=== PATIENT | female | born 1950 | race Caucasian/White ===

== ENCOUNTER 2021-10-14 08:00 | Outpatient (CLI) | payer MEDICARE ==
[2021-10-14 19:45] LABS: BASOPHILS # (AUTO) 0.1 10^3/uL (0.0-0.1); BASOPHILS % (AUTO) 0.6 %; EOSINOPHILS # (AUTO) 0.3 10^3/uL (0.0-0.7); EOSINOPHILS % (AUTO) 3.2 %; HCT - HEMATOCRIT 43.3 % (37.0-47.0); HGB - HEMOGLOBIN 14.1 g/dL (12.0-16.0); LYMPHOCYTES # (AUTO) 2.2 10^3/uL (1.5-3.5); LYMPHOCYTES % (AUTO) 25.6 %; MEAN CORPUSCULAR HGB CONC 32.6 g/dL (32.0-36.0); MEAN CORPUSCULAR VOLUME 95.2 fL (81.0-99.0); MEAN PLATELET VOLUME 9.9 fL (7.9-10.8); MONOCYTES # (AUTO) 0.9 10^3/uL (0.0-1.0); MONOCYTES % (AUTO) 10.5 %; NEUTROPHILS % (AUTO) 59.2 %; PLT - PLATELET COUNT 301 10^3/uL (130-450); RED BLOOD COUNT 4.55 10^6/uL (4.20-5.40); RED CELL DISTRIBUTION WIDTH 14.6 % (12.0-15.0); WHITE BLOOD COUNT 8.4 x10^3/uL (4.8-10.8)
[2021-10-17 16:11] LABS: VARICELLA ZOSTER VIRUS IGM 0.15
== END 2021-10-14 23:59 | disposition home or self-care (01) ==
LOC: LAB.S 08:00
PROVIDERS: ATTEND Registered Nurse
DX: B02.9 Zoster without complications (principal)
CPT/HCPCS: 36415; 85025; 86787

== ENCOUNTER 2022-05-31 23:43 | Outpatient (CLI) | payer MEDICARE | END 2022-05-31 23:44 | disposition critical access hospital (66) | LOC: EMS 23:43 | DX: R06.02 Shortness of breath (principal) | CPT/HCPCS: A0425; A0427 ==

== ENCOUNTER 2022-06-01 00:03 | Emergency (ER) | payer MEDICARE ==
--- NOTE | 2022-06-01 00:08 | ED Physician Documentation ---
PD HPI DYSPNEA - Stated complaint Stated Complaint: SEVERE RESP DISTRESS - History obtained from History obtained from: Patient (minimal contribution from patient , cannot answer most of my questions due to severe respiratory distress), EMS - History of Present Illness Timing - onset: How many weeks ago (1) Timing - details: Gradual onset Improved by: Other (no ameliorating factors) - Additional information Additional information: BIBA for dyspnea, very limited HPI due to severe respiratory distress. EMS says she was able to answer some questions for them with one-word answers but on arrival she can answer almost none of my questions due to severe respiratory distress. EMS says patient indicated to them that she has had approximately 1 week of difficulty breathing, was recently diagnosed with "walking pneumonia". EMS administered duoneb and 125 solumedrol IV without improvement. They say that patient indicated to them that she had already used albuterol at home, but I cannot confirm this with patient. She is able to tell me she does not use oxygen at home, but cannot tell me if she has COPD, emphysema, CHF history. EMS reports pulse ox on room air on their arrival was mid-80s, improved to lower 90s after albuterol, solumedrol, and 100%NRB although her dyspnea has worsened en route Review of Systems Unable to obtain: Other (minimal ROS due to severe respitory distress, requires intuabtion shortly after ED arrival) Cardiac: denies: Chest pain / pressure (when asked if she is having chest pain she shakes her head no) Respiratory: reports: Dyspnea PD PAST MEDICAL HISTORY - Past Medical History Other Past Medical History: unknown - Allergies Allergies/Adverse Reactions: Allergies Allergy/AdvReac Type Severity Reaction Status Date / Time codeine Allergy Anaphylaxis Verified 06/01/22 00:15 morphine Allergy Anaphylaxis Verified 06/01/22 00:15 - Living Situation Living Situation: reports: Unknown PD ED PE NORMAL - Vitals Vital signs reviewed: Yes - General General: Well developed/nourished - Neck Neck: No JVD - Abdomen Abdomen: Soft, Non tender - Derm Derm: Normal color, Other (diaphoretic) - Extremities Extremities: Other (1+ BLE pitting MINH ) PD ED PE EXPANDED - General General: In distress (severe respiratory distress) - Cardiac Cardiac: Tachy - Respiratory Respiratory: Labored, Accessory mm use, Wheezing (inspiratory and expiratory wheezing all lung patel, diminished breath sounds bilaterally ) Results - Vitals Vitals: Vital Signs - 24 hr 06/01/22 06/01/22 06/01/22 00:15 00:21 00:25 Temperature 37.2 C Heart Rate 139 H 139 H 143 H Respiratory 31 H 34 H 30 H Rate Blood Pressure 168/98 H 190/112 H 155/90 H O2 Saturation 91 L 85 L 97 06/01/22 06/01/22 06/01/22 00:30 00:34 00:45 Temperature Heart Rate 141 H 155 H 156 H Respiratory 25 H 25 H Rate Blood Pressure 155/90 H 139/92 H O2 Saturation 98 98 06/01/22 06/01/22 06/01/22 01:05 01:17 01:31 Temperature 38.6 C H 38.5 C H Heart Rate 155 H 127 H 123 H Respiratory 21 21 20 Rate Blood Pressure 97/73 119/76 130/74 O2 Saturation 95 95 99 06/01/22 06/01/22 06/01/22 01:53 02:01 02:19 Temperature 37.2 C Heart Rate 114 H 110 H 109 H Respiratory 21 21 20 Rate Blood Pressure 114/72 117/78 87/66 L O2 Saturation 97 97 91 L 06/01/22 06/01/22 06/01/22 02:24 02:30 02:51 Temperature Heart Rate 108 H 105 H 103 H Respiratory 20 20 Rate Blood Pressure 96/70 101/75 101/81 H O2 Saturation 93 97 06/01/22 06/01/22 06/01/22 03:00 03:10 03:30 Temperature 37.1 C Heart Rate 97 94 86 Respiratory 20 21 Rate Blood Pressure 96/70 95/65 O2 Saturation 96 99 06/01/22 06/01/22 06/01/22 04:00 04:30 04:32 Temperature 37 C 36.8 C Heart Rate 83 77 Respiratory 21 21 Rate Blood Pressure 95/65 75/52 L 81/63 L O2 Saturation 99 100 06/01/22 06/01/22 06/01/22 04:47 05:00 05:30 Temperature Heart Rate 76 76 72 Respiratory 21 21 21 Rate Blood Pressure 89/66 L 89/66 L 92/64 O2 Saturation 100 100 99 06/01/22 06/01/22 06/01/22 05:48 05:50 06:00 Temperature 36.7 C Heart Rate 72 69 70 Respiratory 21 21 Rate Blood Pressure 85/64 L 92/68 O2 Saturation 100 100 06/01/22 06/01/22 06/01/22 06:30 07:00 07:09 Temperature Heart Rate 70 70 69 Respiratory 21 21 Rate Blood Pressure 101/75 102/72 O2 Saturation 100 97 06/01/22 06/01/22 06/01/22 07:43 08:07 09:22 Temperature Heart Rate 68 68 66 Respiratory 20 24 20 Rate Blood Pressure 93/69 98/68 93/67 O2 Saturation 95 96 93 06/01/22 06/01/22 06/01/22 10:13 10:22 10:52 Temperature Heart Rate 64 64 69 Respiratory 26 H 12 Rate Blood Pressure 96/68 106/77 O2 Saturation 93 93 06/01/22 11:10 Temperature Heart Rate 69 Respiratory 16 Rate Blood Pressure 106/71 O2 Saturation 93 Oxygen O2 Source Mechanical ventilator - EKG (time done) #1 Rate: Tachy (139) Rhythm: Sinus tachycardia, Wide complex tachycardia [place]: LAD Intervals: LBBB Compare to prior EKG: Old EKG unavailable #2 Rate: Rate (enter#) (68) Rhythm: NSR [place]: LAD Intervals: Normal MT QRS: Normal Ischemia: Normal ST segments, Other (flat T wave V4-V6, I, (inverted) aVL) Compare to prior EKG: Old EKG unavailable - Labs Labs: Laboratory Tests 06/01/22 06/01/22 06/01/22 00:10 00:10 00:10 WBC 21.6 H RBC 4.83 Hgb 14.8 Hct 45.5 MCV 94.2 MCH 30.6 MCHC 32.5 RDW 12.4 Plt Count 443 MPV 9.9 Neut # (Auto) Not Reportable Lymph # (Auto) Not Reportable [place] # (Auto) Not Reportable Eos # (Auto) Not Reportable Baso # (Auto) Not Reportable Absolute Nucleated RBC Not Reportable Total Counted 100 Band Neuts % (Manual) 0 Abnorm Lymph % (Manual) 0 Nucleated RBC % Not Reportable Neutrophils # (Manual) 13.2 H Lymphocytes # (Manual) 5.4 H Monocytes # (Manual) 1.7 H Eosinophils # (Manual) 1.1 H Basophils # (Manual) 0.2 H Differential Comment MANUAL DIFFERENTIAL WBC Morphology NORMAL APPEARANCE Platelet Estimate NORMAL (130-450,000) Platelet Morphology NORMAL APPEARANCE RBC Morph Micro Appear NORMAL APPEARANCE INR (Fingerstick) Bld Gas Analysis Time Sample Site ABG pH ABG pCO2 ABG pO2 ABG HCO3 ABG Total CO2 ABG O2 Saturation ABG Base Excess [place] Test Respiration Rate O2 Delivery Device Vent Mode FiO2 Tidal Volume PEEP Sodium 134 L Potassium 3.7 Chloride 95 L Carbon Dioxide 23 Anion Gap 16.0 H BUN 20 Creatinine 1.0 Estimated GFR (MDRD) 54 L Glucose 439 H Lactic Acid Calcium 9.7 Total Bilirubin 0.6 AST 37 ALT 44 Alkaline Phosphatase 78 Troponin I High Sens 252.9 H* B-Natriuretic Peptide Total Protein 7.9 Albumin 4.6 Globulin 3.3 Albumin/Globulin Ratio 1.4 Lipase 35 Urine Color Urine Clarity Urine pH Ur Specific [place] Urine Protein Urine Glucose (UA) Urine Ketones Urine Occult Blood Urine Nitrite Urine Bilirubin Urine Urobilinogen Ur Leukocyte Esterase Urine RBC Urine WBC Ur Squamous Epith Cells Urine Bacteria Urine Casts Ur Microscopic Review Urine Culture Comments Nasal Adenovirus (PCR) Nasal B. parapertussis DNA (PCR) Nasal Coronavir 229E PCR Nasal Coronavir HKU1 PCR Nasal Coronavir NL63 PCR Nasal Coronavir OC43 PCR Nasal Enterovir/Rhinovir PCR Nasal Influenza B PCR Nasal Influenza A PCR Nasal Parainfluen 1 PCR Nasal Parainfluen 2 PCR Nasal Parainfluen 3 PCR Nasal Parainfluen 4 PCR Nasal RSV (PCR) Nasal B.pertussis DNA PCR Nasal C.pneumoniae (PCR) Jimmy Human Metapneumo PCR Nasal M.pneumoniae (PCR) Nasal SARS-CoV-2 (PCR) 06/01/22 06/01/22 06/01/22 00:10 00:10 00:30 WBC RBC Hgb Hct MCV MCH MCHC RDW Plt Count MPV Neut # (Auto) Lymph # (Auto) [place] # (Auto) Eos # (Auto) Baso # (Auto) Absolute Nucleated RBC Total Counted Band Neuts % (Manual) Abnorm Lymph % (Manual) Nucleated RBC % Neutrophils # (Manual) Lymphocytes # (Manual) Monocytes # (Manual) Eosinophils # (Manual) Basophils # (Manual) Differential Comment WBC Morphology Platelet Estimate Platelet Morphology RBC Morph Micro Appear INR (Fingerstick) Bld Gas Analysis Time Sample Site ABG pH ABG pCO2 ABG pO2 ABG HCO3 ABG Total CO2 ABG O2 Saturation ABG Base Excess [place] Test Respiration Rate O2 Delivery Device Vent Mode FiO2 Tidal Volume PEEP Sodium Potassium Chloride Carbon Dioxide Anion Gap BUN Creatinine Estimated GFR (MDRD) Glucose Lactic Acid 5.6 H* Calcium Total Bilirubin AST ALT Alkaline Phosphatase Troponin I High Sens B-Natriuretic Peptide 38 Total Protein Albumin Globulin Albumin/Globulin Ratio Lipase Urine Color Urine Clarity Urine pH Ur Specific [place] Urine Protein Urine Glucose (UA) Urine Ketones Urine Occult Blood Urine Nitrite Urine Bilirubin Urine Urobilinogen Ur Leukocyte Esterase Urine RBC Urine WBC Ur Squamous Epith Cells Urine Bacteria Urine Casts Ur Microscopic Review Urine Culture Comments Nasal Adenovirus (PCR) NOT DETECTED Nasal B. parapertussis DNA (PCR) NOT DETECTED Nasal Coronavir 229E PCR NOT DETECTED Nasal Coronavir HKU1 PCR NOT DETECTED Nasal Coronavir NL63 PCR NOT DETECTED Nasal Coronavir OC43 PCR NOT DETECTED Nasal Enterovir/Rhinovir PCR NOT DETECTED Nasal Influenza B PCR NOT DETECTED Nasal Influenza A PCR NOT DETECTED Nasal Parainfluen 1 PCR NOT DETECTED Nasal Parainfluen 2 PCR NOT DETECTED Nasal Parainfluen 3 PCR NOT DETECTED Nasal Parainfluen 4 PCR NOT DETECTED Nasal RSV (PCR) NOT DETECTED Nasal B.pertussis DNA PCR NOT DETECTED Nasal C.pneumoniae (PCR) NOT DETECTED Jimmy Human Metapneumo PCR NOT DETECTED Nasal M.pneumoniae (PCR) NOT DETECTED Nasal SARS-CoV-2 (PCR) NOT DETECTED 06/01/22 06/01/22 06/01/22 00:49 02:00 02:50 WBC RBC Hgb Hct MCV MCH MCHC RDW Plt Count MPV Neut # (Auto) Lymph # (Auto) [place] # (Auto) Eos # (Auto) Baso # (Auto) Absolute Nucleated RBC Total Counted Band Neuts % (Manual) Abnorm Lymph % (Manual) Nucleated RBC % Neutrophils # (Manual) Lymphocytes # (Manual) Monocytes # (Manual) Eosinophils # (Manual) Basophils # (Manual) Differential Comment WBC Morphology Platelet Estimate Platelet Morphology RBC Morph Micro Appear INR (Fingerstick) 1.0 Bld Gas Analysis Time 0206 0256 Sample Site RIGHT RADIAL RIGHT RADIAL ABG pH 7.16 L* 7.23 L ABG pCO2 60 H* 56 H ABG pO2 134 H 87 ABG HCO3 20.9 L 22.6 ABG Total CO2 22.7 24.3 ABG O2 Saturation 98 95 ABG Base Excess -8.6 L -5.7 L [place] Test POSITIVE POSITIVE Respiration Rate 20 24 O2 Delivery Device VENTILATOR VENTILATOR Vent Mode ASSIST/CONTROL ASSIST/CONTROL FiO2 100.00 80.00 Tidal Volume 350 380 PEEP 5 5 Sodium Potassium Chloride Carbon Dioxide Anion Gap BUN Creatinine Estimated GFR (MDRD) Glucose Lactic Acid Calcium Total Bilirubin AST ALT Alkaline Phosphatase Troponin I High Sens B-Natriuretic Peptide Total Protein Albumin Globulin Albumin/Globulin Ratio Lipase Urine Color Urine Clarity Urine pH Ur Specific [place] Urine Protein Urine Glucose (UA) Urine Ketones Urine Occult Blood Urine Nitrite Urine Bilirubin Urine Urobilinogen Ur Leukocyte Esterase Urine RBC Urine WBC Ur Squamous Epith Cells Urine Bacteria Urine Casts Ur Microscopic Review Urine Culture Comments Nasal Adenovirus (PCR) Nasal B. parapertussis DNA (PCR) Nasal Coronavir 229E PCR Nasal Coronavir HKU1 PCR Nasal Coronavir NL63 PCR Nasal Coronavir OC43 PCR Nasal Enterovir/Rhinovir PCR Nasal Influenza B PCR Nasal Influenza A PCR Nasal Parainfluen 1 PCR Nasal Parainfluen 2 PCR Nasal Parainfluen 3 PCR Nasal Parainfluen 4 PCR Nasal RSV (PCR) Nasal B.pertussis DNA PCR Nasal C.pneumoniae (PCR) [place] Human Metapneumo PCR Nasal M.pneumoniae (PCR) Nasal SARS-CoV-2 (PCR) 06/01/22 06/01/22 06/01/22 03:50 05:38 06:15 WBC RBC Hgb Hct MCV MCH MCHC RDW Plt Count MPV Neut # (Auto) Lymph # (Auto) [place] # (Auto) Eos # (Auto) Baso # (Auto) Absolute Nucleated RBC Total Counted Band Neuts % (Manual) Abnorm Lymph % (Manual) Nucleated RBC % Neutrophils # (Manual) Lymphocytes # (Manual) Monocytes # (Manual) Eosinophils # (Manual) Basophils # (Manual) Differential Comment WBC Morphology Platelet Estimate Platelet Morphology RBC Morph Micro Appear INR (Fingerstick) Bld Gas Analysis Time 0544 Sample Site RIGHT BRACHIAL ABG pH 7.34 L ABG pCO2 41 ABG pO2 130 H ABG HCO3 21.8 L ABG Total CO2 23.1 ABG O2 Saturation 98 ABG Base Excess -3.8 L [place] Test POSITIVE Respiration Rate 26 O2 Delivery Device VENTILATOR Vent Mode ASSIST/CONTROL FiO2 80.00 Tidal Volume 380 PEEP 5 Sodium Potassium Chloride Carbon Dioxide Anion Gap BUN Creatinine Estimated GFR (MDRD) Glucose Lactic Acid Calcium Total Bilirubin AST ALT Alkaline Phosphatase Troponin I High Sens 2371.4 H* B-Natriuretic Peptide Total Protein Albumin Globulin Albumin/Globulin Ratio Lipase Urine Color YELLOW Urine Clarity CLEAR Urine pH 6.5 Ur Specific [place] 1.020 Urine Protein 100 H Urine Glucose (UA) NEGATIVE Urine Ketones NEGATIVE Urine Occult Blood MODERATE H Urine Nitrite NEGATIVE Urine Bilirubin NEGATIVE Urine Urobilinogen 0.2 (NORMAL) Ur Leukocyte Esterase NEGATIVE Urine RBC 11-25 H Urine WBC 0-3 Ur Squamous Epith Cells RARE Squamous Urine Bacteria Rare Urine Casts 0-2 Hyaline Casts Ur Microscopic Review INDICATED Urine Culture Comments NOT INDICATED Nasal Adenovirus (PCR) Nasal B. parapertussis DNA (PCR) Nasal Coronavir 229E PCR Nasal Coronavir HKU1 PCR Nasal Coronavir NL63 PCR Nasal Coronavir OC43 PCR Nasal Enterovir/Rhinovir PCR Nasal Influenza B PCR Nasal Influenza A PCR Nasal Parainfluen 1 PCR Nasal Parainfluen 2 PCR Nasal Parainfluen 3 PCR Nasal Parainfluen 4 PCR Nasal RSV (PCR) Nasal B.pertussis DNA PCR Nasal C.pneumoniae (PCR) [place] Human Metapneumo PCR Nasal M.pneumoniae (PCR) Nasal SARS-CoV-2 (PCR) - Rads (name of study) chest xray Radiology: Prelim report reviewed, See rad report CTA chest Radiology: Prelim report reviewed, See rad report Procedures - Intubation Provider: Emergency physician Medications: Versed, Succinylcholine Blade: Glidescope Tube: Size-enter number (7.5), Cuffed, Marked at lips-enter cm (23) Route: Oral Confirmation: Direct visualization ((via glidescope)), Bilateral breath sounds, No abdominal breath sound, End tidal CO2, Pulse ox, Chest xray Complications: No compications (ETT pulled back 2 cm after CXR demonstrates ETT is just above the quan) PD MEDICAL DECISION MAKING - ED course Complexity details: reviewed old records (late in ED stay (see narrative below)), reviewed results, re-evaluated patient, considered differential ED course: Patient required intubation shortly after ED arrival due to severe respiratory distress. EKG shows LBBB and initially there is no previous for comparison. Initial hs-cTn 252.9, repeated 6 hours later with result of 2371.9. BNP 30. No findings on chest xray nor CTA chest to account for her dyspnea; no evidence of PE, pneumonia, pneumothorax; minor interstitial edema on CTA. She is febrile on presentation with temp of 38.6, but without antipyretics she defervesced early in stay without recurrence of fevers. Lactate 5.6, WBC 21.6. Initial ABG (post-intubation) 7.16/60/135/20.9 but with adjustments in her ventilation settings, her subsequent ABGs improved with her third ABG 7.34/41/130/21.8. UA does not evidence infection (11-25 RBC on micro without other abnormalities). I discussed this case with [facility] hospitalist, Dr. Camara; she recommends transfer due to the new LBBB combined with the sharp increase in her hs-cTn. I then discussed the case with [facility] and they will begin looking for a bed at an appropriate facility. Late in ED stay I was able to obtain records from an outpatient clinic visit, 04/17/2022. She was seen for c/o pedal edema and notes indicate she was already on lasix 20mg QD which was increased to 40mg after the clinic visit (unclear for how long this was to be on the higher dose). These notes also include an EKG which is NSR without LBBB. The notes also indicate a medication list (which was also previously unavailable to me) (lasix, sertraline, zolpidem, gabapentin, lisinopril, HCTZ). The HPI includes "She has a history of NC at age 37", as well as "She has a history of CHF, followed by cardiology at [facility]". It is not clear to me from these notes if the information was verified or was by patient report alone. After patient was intubated, her blood pressures were frequently low-normal to mild hypotension (SBP 90s-80s), for which she was given IV fluids and her systolic blood pressures improved to 90s-100s. A repeat EKG late in ED stay shows NSR 68 BPM, resolution of the LBBB. flat T waves are in V4-V6 and I, with inverted T in AVL. This is without change from the EKG from 04/17/22 from the notes received from the clinic. Initial blood tests also indicate blood glucose of 439, but without intervention a FSBS later in stay was 146. She is given lovenox 80 mg SQ , 300mg ASA MT. Also given zosyn IV for possible infectious cause/contribution (although there is no apparent source of infection on this workup) Care of patient turned over to oncoming ED physician at end of my shift - Critical Care Time(min): 70 Time Includes: Direct patient care, Review records, Reassess patient, Document care, Coordinate care, Medical consult, See progress note Data interpretation: Labs, Pulse ox, ABG, CXR, Prior EKG, See progress note Procedures included in critical care time: Ventilator mgmt, See progress note Procedures excluded from critical care time: Intubation, EKG, See progress note Departure - Departure Disposition: 02 Transfer Acute Care Hosp Clinical Impression: Left bundle branch block Respiratory failure Qualifiers: Chronicity: acute Respiratory failure complication: hypoxia and hypercapnia Qualified Code(s): J96.01 - Acute respiratory failure with hypoxia Condition: Serious
[2022-06-01] MEDS ORDERED: PROPOFOL 1000 MG/100 ML 1,000 MG/100 ML BOTTLE IV STA ×2 (00:10→04:53)
[2022-06-01] MEDS ORDERED: MIDAZOLAM 10 MG/2 ML VIAL IVP STA ×2 (00:10→00:34)
[2022-06-01] MEDS ORDERED: SUCCINYLCHOLINE 200 MG/10 ML VIAL IVP STA (00:10)
--- OUTSIDE RECORDS SUMMARY | 2022-06-01 00:15 | EXTERNAL MEDICAL SUMMARY RPT | Continuity of Care Document ---
:1950 Author Organization [facility] Address [address] [place] [address] Phone Allergies No information. Encounters No information. Functional Status No information. Immunizations No information. Medications date description facility [id number] hydrocortisone [facility] [id number]+0000 furosemide [facility] [id number]+0000 furosemide [facility] [id number]+0000 hydrocortisone [facility] Problems No information. Procedures date description facility [id number] Visit Code Hold [facility] [id number] EKG Office Complete [facility] Results/Labs No information. Social History date description facility [id number] Never smoker [facility] Vital Signs date measurement value units [id number] BMI BMI 35.46 kg/m2 [id number]+0000 BP_diastolic BP_diastolic 86 mm[H g] [id number]+0000 BP_systolic BP_systolic 133 mm[Hg] [id number]+0000 heart_rate heart_rate 98 /min [id number]+0000 height_metric height_metric 154.94 cm [id number]+0000 height_standard height_standard 61 in [id number]+0000 respiration_rate respiration_rate 16 /min [id number]+0000 temperature_metric temperature_metric 37 C [id number]+0000 temperature_standard temperature_standard 9 8.6 F [id number]+0000 weight_metric weight_metric 84.82 kg [id number]+0000 weight_standard weight_standard 187 lb
[2022-06-01 00:30] LABS: BASOPHILS % (AUTO) 0.5 %; EOSINOPHILS % (AUTO) 3.3 %; HCT - HEMATOCRIT 45.5 % (37.0-47.0); HGB - HEMOGLOBIN 14.8 g/dL (12.0-16.0); LYMPHOCYTES % (AUTO) 28.7 %; MEAN CORPUSCULAR HEMOGLOBIN 30.6 pg (27.0-31.0); MEAN CORPUSCULAR HGB CONC 32.5 g/dL (32.0-36.0); MEAN CORPUSCULAR VOLUME 94.2 fL (81.0-99.0); MEAN PLATELET VOLUME 9.9 fL (7.9-10.8); MONOCYTES % (AUTO) 7.4 %; PLT - PLATELET COUNT 443 10^3/uL (130-450); RED BLOOD COUNT 4.83 10^6/uL (4.20-5.40); RED CELL DISTRIBUTION WIDTH 12.4 % (12.0-15.0); WHITE BLOOD COUNT 21.6 x10^3/uL (4.8-10.8)
[2022-06-01] MEDS ORDERED: FUROSEMIDE 40 MG/4 ML VIAL IVP STA (00:34)
[2022-06-01 00:35] LABS: ABNORMAL LYMPHS % (MANUAL) 0 %; BAND NEUTROPHILS % (MANUAL) 0 %
[2022-06-01 00:41] LABS: ALBUMIN 4.6 g/dL (3.2-5.5); ALBUMIN/GLOBULIN RATIO 1.4 (1.0-2.2); BILIRUBIN,TOTAL 0.6 mg/dL (0.2-1.0); CALCIUM 9.7 mg/dL (8.5-10.3); POTASSIUM 3.7 mmol/L (3.5-5.0); TOTAL PROTEIN 7.9 g/dL (6.7-8.2)
[2022-06-01] MEDS ORDERED: VECURONIUM 10 MG VIAL IVP STA (00:57)
[2022-06-01] MEDS ORDERED: PROPOFOL 200 MG/20 ML VIAL IVP STA (00:58)
[2022-06-01 00:59] LABS: BASOPHILS # (MANUAL) 0.2 10^3/uL (0-0.1); BASOPHILS % (MANUAL) 1 %; DIFFERENTIAL COMMENT MANUAL DIFFERENTIAL; EOSINOPHILS # (MANUAL) 1.1 10^3/uL (0-0.7); LYMPHOCYTES # (MANUAL) 5.4 10^3/uL (1.5-3.5); LYMPHOCYTES % (MANUAL) 25 %; MONOCYTES # (MANUAL) 1.7 10^3/uL (0.0-1.0); NEUTROPHILS # (MANUAL) 13.2 10^3/uL (1.5-6.6); PLATELET ESTIMATE, MANUAL NORMAL (130-450,000) (NORMAL); PLATELET MORPHOLOGY NORMAL APPEARANCE (NORMAL); RBC MORPHOLOGY (MULTIPLE) NORMAL APPEARANCE (NORMAL); WBC MORPHOLOGY (MULTIPLE) NORMAL APPEARANCE (NORMAL)
--- NOTE | 2022-06-01 01:56 | XRAY Report ---
PROCEDURE: Chest for Line Placement INDICATIONS: post intubation TECHNIQUE: One view of the chest was acquired. COMPARISON: 04/17/2022. FINDINGS: Surgical changes and devices: There is an endotracheal tube with the tip approximately 1.5 cm from t he quan. A nasogastric tube is present extending to the stomach with the side-port likely at the re gion of the gastroesophageal junction. Lungs and pleura: There is increased pulmonary vascular prominence suggestive of mild edema. No defi nite pleural effusions or pneumothorax, with evaluation limited by supine technique. Mediastinum: Mediastinal contours appear normal. Heart size is normal. Bones and chest wall: No suspicious bony lesions. Overlying soft tissues appear unremarkable. IMPRESSION: 1. Endotracheal tube tip approximately 1.5 cm from the quan. Recommend withdrawal by approximately 2 cm. 2. Nasogastric tube extends into the stomach with the side-port in the region of the gastroesophageal junction. Recommend further advancement into the stomach. 3. Pulmonary vascular prominence suggestive of mild edema. Findings discussed with Dr. Melchor on 06/01/2022 at 1:50 AM. Reviewed by: Gaurang Robledo MD on 06/01/2022 1:55 AM PDT Approved by: Gaurang Robledo MD on 06/01/2022 1:55 AM PDT Station ID: [id number]
[2022-06-01 02:14] LABS: ABG BASE EXCESS -8.6 mmol/L (-2.0-3.0); ABG HCO3 20.9 mmol/L (22.0-26.0); ABG OXYGEN SATURATION 98 % (94-98); ABG PO2 134 mmHg (80-100); ABG TCO2 22.7 MMOL/L (21.0-29.0); ALLEN TEST POSITIVE
[2022-06-01 02:15] LABS: ABG MODE OF VENTILATION ASSIST/CONTROL; ABG RESPIRATORY RATE 20 b/min
[2022-06-01 02:17] LABS: ABG PCO2 60 mmHg (34-45); ABG PH 7.16 (7.35-7.45)
[2022-06-01 02:18] LABS: B. PARAPERTUSSIS- RESP PCR PAN NOT DETECTED; B. PERTUSSIS- RESP PCR PANEL NOT DETECTED; C. PNEUMONIAE- RESP PCR PANEL NOT DETECTED; CORONAVIRUS 229E-RESP PCR NOT DETECTED; CORONAVIRUS HKU1-RESP PCR NOT DETECTED; CORONAVIRUS NL63-RESP PCR NOT DETECTED; CORONAVIRUS OC43-RESP PCR NOT DETECTED; HUMAN METAPNEUMOVIRUS NOT DETECTED; INFLUENZA A- RESP PCR PANEL NOT DETECTED; INFLUENZA B - RESP PCR PANEL NOT DETECTED; M. PNEUMONIAE- RESP PCR PANEL NOT DETECTED; PARAINFLUENZA VIRUS 1 NOT DETECTED; PARAINFLUENZA VIRUS 2 NOT DETECTED; PARAINFLUENZA VIRUS 3 NOT DETECTED; PARAINFLUENZA VIRUS 4 NOT DETECTED; RHINOVIRUS/ENTEROVIRUS NOT DETECTED; RSV- RESP PCR PANEL NOT DETECTED; SARS-CoV-2 -RESP PCR PANEL NOT DETECTED
[2022-06-01] MEDS ORDERED: SODIUM CHLORIDE 0.9% 1,000 ML IV STA (02:26)
[2022-06-01 03:10] LABS: ABG BASE EXCESS -5.7 mmol/L (-2.0-3.0); ABG HCO3 22.6 mmol/L (22.0-26.0); ABG PCO2 56 mmHg (34-45); ABG PH 7.23 (7.35-7.45); ABG PO2 87 mmHg (80-100); ABG TCO2 24.3 MMOL/L (21.0-29.0)
[2022-06-01 03:11] LABS: ABG MODE OF VENTILATION ASSIST/CONTROL; ABG OXYGEN SATURATION 95 % (94-98); ABG RESPIRATORY RATE 24 b/min; ALLEN TEST POSITIVE
[2022-06-01] MEDS ORDERED: KETAMINE 500 MG/10 ML VIAL IVP ONE (03:17)
[2022-06-01 03:59] LABS: BILIRUBIN,URINE NEGATIVE (NEGATIVE); GLUCOSE, URINE (UA) NEGATIVE (NEGATIVE); KETONES,URINE (UA) NEGATIVE (NEGATIVE); LEUKOCYTE ESTERASE, URINE NEGATIVE (NEGATIVE); NITRITE,URINE NEGATIVE (NEGATIVE); OCCULT BLOOD,URINE MODERATE (NEGATIVE); PH,URINE 6.5 PH (5.0-7.5); PROTEIN,URINE 100 mg/dL (NEGATIVE); UROBILINOGEN,URINE 0.2 (NORMAL) E.U./dL (NORMAL)
[2022-06-01 04:00] LABS: CLARITY,URINE CLEAR (CLEAR)
[2022-06-01 04:10] LABS: BACTERIA,URINE Rare /HPF (None Seen); SQUAMOUS EPITHELIAL CELL,UR RARE Squamous (<= Few); WBC,URINE 0-3 /HPF (0-5)
[2022-06-01 04:11] LABS: CASTS, URINE 0-2 Hyaline Casts /LPF
[2022-06-01] MEDS ORDERED: SODIUM CHLORIDE 0.9% 1,000 ML IV ONE (04:32)
[2022-06-01 05:51] LABS: ABG BASE EXCESS -3.8 mmol/L (-2.0-3.0); ABG HCO3 21.8 mmol/L (22.0-26.0); ABG OXYGEN SATURATION 98 % (94-98); ABG PCO2 41 mmHg (34-45); ABG PH 7.34 (7.35-7.45); ABG PO2 130 mmHg (80-100); ABG TCO2 23.1 MMOL/L (21.0-29.0); ALLEN TEST POSITIVE
[2022-06-01 05:52] LABS: ABG MODE OF VENTILATION ASSIST/CONTROL; ABG RESPIRATORY RATE 26 b/min
[2022-06-01] MEDS ORDERED: ENOXAPARIN 80 MG/0.8 ML SYRINGE SUBQ SCH ×2 (07:26→09:00)
[2022-06-01] MEDS ORDERED: PIPERACILLIN/TAZOBACTAM 4.5 GM in SODIUM CHLORIDE 0.9% MINIBAG 100 ML IV STA (07:27)
[2022-06-01] MEDS ORDERED: ASPIRIN 300 MG SUPP PR STA (07:27)
--- NOTE | 2022-06-01 11:53 | CT Report ---
PROCEDURE: ANGIO CHEST W/WO INDICATIONS: dyspnea requiring intubtation CONTRAST: IV CONTRAST: Optiray 320 ml: 80 PO CONTRAST: *NO PO CONTRAST TECHNIQUE: After the administration of intravenous contrast, 2 mm axial images were acquired from the pulmonary apices to the posterior costophrenic angles during the arterial phase. In addition, 1 mm lung kernel and 5 mm soft tissue kernel reconstructions were performed. 3-dimensional coronal oblique maximum int ensity projection (MIP) reformats, 8 mm axial MIP, and 5 mm coronal and sagittal MPR reformats were t hen performed through the thorax. For radiation dose reduction, the following was used: automated exp osure control, adjustment of mA and/or kV according to patient size. COMPARISON: Chest x-ray 06/01/2022 FINDINGS: Image quality: Excellent. Pulmonary arteries: Pulmonary arteries are normal in size, and demonstrate no intraluminal filling d efects to suggest central pulmonary embolism. Lungs and pleura: Dependent changes are present within the bases. No pleural effusions or pneumothora x. Central and peripheral airways are patent. Mild appearance of interstitial pulmonary edema is pr esent. Scattered areas of bronchial wall thickening are noted. Mediastinum: Heart size is normal, without pericardial effusion. No mediastinal or hilar adenopathy . Thoracic aorta is normal in caliber and enhancement. Esophagus is normal in caliber, without hiat al hernia. Endotracheal tube and nasogastric tubes are present. Bones and chest wall: No suspicious bony lesions. Ribs and thoracic spine appear intact throughout. No axillary or supraclavicular adenopathy. The thyroid is normal in size and there are no incident al findings. Abdomen: Visualized upper abdominal solid organs appear normal in the early arterial phase of enhanc ement. IMPRESSION: No pulmonary embolism. No gross effusions or consolidations. Mild appearance of pulmonary edema. The above findings are concordant with preliminary report. CLINICAL RECOMMENDATION STATEMENTS: In patients <35 years with an ITN detected on CT, MRI, or extrathyroidal ultrasound, the Committee re commends further evaluation with dedicated thyroid ultrasound if the nodule is "e1 cm and has no susp icious imaging features, and if the patient has normal life expectancy. In patients "e35 years with an ITN detected on CT, MRI, or extrathyroidal ultrasound, the Committee r ecommends further evaluation with dedicated thyroid ultrasound if the nodule is "e1.5 cm and has no s uspicious imaging features, and if the patient has normal life expectancy. (ACR, 2014) Reviewed by: Nayana Dowd MD on 06/01/2022 11:52 AM PDT Approved by: Nayana Dowd MD on 06/01/2022 11:52 AM PDT Station ID: [id number]
[2022-06-01] MEDS ORDERED: fentaNYL 100 MCG/2 ML VIAL IVP STA (13:27)
--- NOTE | 2022-06-01 13:38 | ED Physician Documentation ---
ED Addendum - Addendum Addendum: Patient boarding in the emergency department, awaiting transfer for acute respiratory failure and elevated troponins. 06/01/22 13:30 - Per [facility] administrator, Casey, plan to keep pt as ED status but move pt to ICU. Hospitalist will place outpatient consult note and aid with management. D/W Dr. Lundberg who agrees with plan and will consult.
[2022-06-01] MEDS ORDERED: PROPOFOL 1000 MG/100 ML 1,000 MG/100 ML BOTTLE IV ONE (15:05)
--- NOTE | 2022-06-01 15:42 | CONSULTATION NOTE ---
Referring Provider Name of Referring Provider:: Dr Willie Melchor and Dr Oneal Forde Consult Date: 06/01/22 Chief Complaint - Chief Complaint Chief Complaint: Severe shortness of breath History of Present Illness - History Obtained From History obtained from: ED provider and records review - History of Present Illness HPI Comment/Other: This is a 71-year-old white female who has never been here before. Her old records are from 2011 and in storage. However a PCP visit from April of this year was later obtained into the ED. The patient saw a primary care provider and reported a history of CHF and stated that her only medications were diuretic s and pain meds. There was a plan to increase the diuretic dose of Lasix. It is unknown if she has had cardiac work-up in the past. An EKG from that April 2020 doctor visit showed normal sinus rhythm and narrow QRS complexes. The patient was picked up by ambulance today because of complaints of severe shortness of breath. EMS said patient indicated to them that she has had approximately 1 week of difficulty breathing, was recently diagnosed with "walking pneumonia". EMS administered duoneb and 125 solumedrol IV without improvement. They say that patient indicated to them that she had already used albuterol at home, but the ED provider could not confirm this with patient. She was able to report that she does not use oxygen at home, but cannot say if she has COPD, emphysema, or a CHF history. EMS reported her pulse ox on room air on their arrival was mid-80s, which improved to lower 90s after albuterol, solumedrol, and 100%NRB although her dyspnea has worsened en route. In the ED she had pursed lip breathing and could only answer with one-word sentences. Her distress was so severe that she required intubation and was placed on a ventilator and sedation. Her work-up showed an EKG with sinus rhythm and left bundle branch block. (At that time the old EKG was not available). Her first labs showed a troponin of... Several hours later the next troponin was... She underwent a CT scan of the chest to rule out PE which was negative for PE but showed... The ED provider Dr. Melchor spoke with me this morning and we discussed that she has ruled in for an IL with her new left b undle branch block and troponins rising tenfold and that she needs transfer for a coronary angio. The ED provider has tried to reach out for transfer to a higher level of care, unfortunately currently there are no beds available at hospitals for taking her in transfer. The (next) ED provider Dr. Forde has requested consultation from the Hospitalist team. Before being intubated, Dr. Melchor was able to confirm that the patient wanted to be put on the ventilator. Overall her CODE BLUE status is not known, therefore by default she will be a Full Code. History - Past Medical History Cardiovascular: reports: Congestive heart failure Neuro: reports: Peripheral neuropathy Psych: reports: Depression MRSA Hx?: No Other Past Medical History: unknown - Family & Social History Family History Comment/Other: The family history was not obtainable since she was in respiratory distress and intubated before this could be learned Living arrangement: At home Living Situation: Unknown Social History Notes: The social history and habits were not obtainable since she was in respiratory distress and intubated before this could be learned Meds/Allgy - Allergies Allergies/Adverse Reactions: Allergies Allergy/AdvReac Type Severity Reaction Status Date / Time codeine Allergy Anaphylaxis Verified 06/01/22 00:15 morphine Allergy Anaphylaxis Verified 06/01/22 00:15 Review of Systems - All Other Systems All Other Systems: reports: Other (Patient could not give any detailed history because of presenting in severe respiratory distress and she was intubated before any of these details could be acertained.) Exam - Vital Signs Vital Signs: Vital Signs x48h Pulse Resp BP Pulse Ox 06/01/22 14:30 68 16 96/71 93 06/01/22 13:40 72 20 130/68 91 L 06/01/22 13:33 66 06/01/22 13:25 75 20 106/71 93 06/01/22 12:43 69 20 107/76 92 06/01/22 11:54 68 20 122/79 92 06/01/22 11:10 69 16 106/71 93 06/01/22 10:52 69 12 106/77 93 06/01/22 10:22 64 26 H 96/68 93 06/01/22 10:13 64 06/01/22 09:22 66 20 93/67 93 06/01/22 08:07 68 24 98/68 96 06/01/22 07:43 68 20 93/69 95 - Physical Exam General Appearance: positive: Other (Obese. Lightly sedated, opens eyes to name, blinks and nods for answering.) Eyes Bilateral: positive: Normal inspection, EOMI ENT: positive: No signs of dehydration, Other (ET tube in place) Neck: positive: Nml inspection Respiratory: positive: Wheezes (end expiratory and in upper lung patel) Cardiovascular: positive: Regular rate & rhythm, No murmur Abdomen: positive: Non-tender, Other (Obese with pannus) Skin: positive: Warm, Dry Extremities: positive: Non-tender, No pedal edema Neurologic/Psychiatric: positive: Other (Sedated on Propofol) Conclusion/Plan - Problem List (1) Acute IL Conclusion/Plan: Timing of her symptoms was not available at initial presentation and it was not known if the left bundle branch block was new or old at presentation, therefore she was not a candidate for TPA. By cycling her troponins she has ruled in for an IL and the LBBB has resolved, confirming an acute IL. Continue to support her oxygenation with vent support. Agree with treatment with 1 aspirin daily, either per rectum or per NG tube. Agree with initiating full dose Lovenox at therapeutic doses twice daily. Will start beta-blockers, parenterally, with parameters for holding Will order statin per ng Start topical NTP Start scheduled Protonix iv for prophylaxis from GI bleed/stress ulcer. Continue to cycle the troponins to see where they peak. If she is still here and not transferred, recommend obtaining an Echocardiogram tomorrow to evaluate LVEF (the Echo services here Wednesday through , today is Mon), however I recommend obtaining a stat Echo since she has "soft" blood pressure. She needs urgent transfer for coronary angiography and cardiology management. 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 The Echo showed: Moderately dilated left atrium and right atrium. Normal aortic root diameter with mural atherosclerosis. Normal left ventricular size with concentric LV hypertrophy. Mild global LV hypokinesis, but inferior wall severely hypokinetic, LVEF estimated at 40%. Doppler shows mild LV diastolic dysfunction is present (grade 1). Moderately dilated right ventricle, moderately depressed RV function. No pericardial effusion seen. Mitral annulus calcified, aortic valve sclerotic but has good motion. Tricuspid and pulmonic valves appear structurally normal. Doppler of the valves shows mild mitral regurgitation, moderate tricuspid regurgitation, and trace aortic and pulmonic regurgitation. PA pressure could not be estimated. (2) Acute respiratory failure with hypoxia Conclusion/Plan: She was in extremist with respiratory distress and was intubated in the ED upon presentation Continue to manage her respiratory status on the vent, keeping O2 sats greater than 90%. Treat the underlying cause for the hypoxia which in her case could be flash pulmonary edema plus her abnormal chest CT findings of possible pneumonia. There is one mention of her using albuterol at home, and wheezing is audible on her exam, therefore she derick has COPD. I do not recommend using high-dose IV steroids presently in the face and of acute IL,since steroids are associated with a worse cardiac prognosis if given during an IL. I do recommend scheduled nebulizers, that do not promote tachycardia. Xopenex should be started. Follow her ABG routinely daily or after vent changes are made. (3) Abnormal CT scan, chest Conclusion/Plan: She has CT chest findings reported as bronchomalacia, interstitial changes and atelectasis versus infiltrate. She also has an elevated WBC of 21 and elevated Lactic Acid, supporting a possible pneumonia. Send off sputum for culture and obtain blood cultures, if not already done Agree with empiric IV antibiotic, continue Zosyn. Would give empiric Lasix IV. Follow I's and O's. Follow daily BMP and magnesium in a patient on diuretics. Baldwin should be placed for monitoring I's and O's carefully in this critical patient The patient needs transfer to a higher level of care with hydraulic pile hammer operator/pulmonary consult regarding her chest CT findings. (4) Elevated lactic acid level Conclusion/Plan: This could be evidence of (pulmonary or other) infection, since she does not have DKA or ketosis according to her BMP, and we are not aware if she may have had hypotension causing hypoperfusion. Obtain a UA with culture if indicated Because she has probable pulmonary edema, cannot give aggressive IV rehydration. Follow her lactic acid level now that she has started antibiotics, to assure it is correcting. Recommend obtaining a stat Echo to evaluate LV function since her BP is "soft". If she has septic shock in the face of an acute IL, her prognosis is very poor. (5) Dependent on ventilator Conclusion/Plan: Recommend starting propofol for sedation while she is on the ventilator. While she is sedated, she cannot sign consent for ambulance transfer or coronary angio, social work needs to be ordered to help find next of kin or DPOA. Continue to adjust vent settings so that she could eventually be extubated. She needs transfer to higher level of care and consultation with hydraulic pile hammer operator/bowling ball molder. - Lab Results Fish Bones: 06/01/22 00:10 06/01/22 00:10 - Diagnostic Imaging Results Diagnostic Imaging Results: positive: Final report reviewed - EKG Results EKG Interpreted Independently: Yes - Other Other Results/Comments: Critical care time spent: 60 minutes (reviewing records, ordering meds, repeat checking of the patient).
[2022-06-01] MEDS ORDERED: PANTOPRAZOLE 40 MG VIAL IV STA (16:29)
[2022-06-01] MEDS ORDERED: ONDANSETRON 4 MG/2 ML VIAL IVP PRN (16:41)
[2022-06-01] MEDS ORDERED: SODIUM CHLORIDE FLUSH 0.9% 10 ML SYRINGE IVP PRN (16:41)
[2022-06-01] MEDS ORDERED: ACETAMINOPHEN 325 MG TABLET PO PRN (16:41)
[2022-06-01 16:46] LABS: ABG PCO2 33 mmHg (34-45); ABG PH 7.46 (7.35-7.45); ABG PO2 64 mmHg (80-100)
[2022-06-01 16:47] LABS: ABG OXYGEN SATURATION 93 % (94-98); ALLEN TEST POSITIVE
[2022-06-01 16:50] LABS: ABG MODE OF VENTILATION VC; ABG RESPIRATORY RATE 26 b/min
[2022-06-01] MEDS ORDERED: PIPERACILLIN/TAZOBACTAM 3.375 GM in SODIUM CHLORIDE 0.9% MINIBAG 100 ML IV SCH (17:00)
[2022-06-01] MEDS: LEVALBUTEROL 1.25 MG/3 ML NEB INH SCH (17:11)
[2022-06-01] MEDS: NITROGLYCERIN 2% PASTE TOP SCH (17:44)
[2022-06-01] MEDS: SODIUM CHLORIDE FLUSH 0.9% 10 ML SYRINGE IVP SCH (17:44)
[2022-06-01 18:34] LABS: ABG BASE EXCESS -1.4 mmol/L (-2.0-3.0); ABG HCO3 21.4 mmol/L (22.0-26.0); ABG PCO2 31 mmHg (34-45); ABG PH 7.46 (7.35-7.45); ABG PO2 72 mmHg (80-100); ABG TCO2 22.4 MMOL/L (21.0-29.0)
[2022-06-01 18:35] LABS: ABG OXYGEN SATURATION 94 % (94-98); ALLEN TEST POSITIVE
[2022-06-01 18:36] LABS: ABG MODE OF VENTILATION VC; ABG RESPIRATORY RATE 24 b/min
[2022-06-01] MEDS: PIPERACILLIN/TAZOBACTAM 4.5 GM in SODIUM CHLORIDE 0.9% MINIBAG 100 ML IV SCH (20:42)
[2022-06-01] MEDS: ENOXAPARIN 80 MG/0.8 ML SYRINGE SUBQ SCH (21:02)
[2022-06-01] MEDS: carvediloL 3.125 MG TABLET PO SCH (21:02)
[2022-06-01] MEDS: PROPOFOL 1000 MG/100 ML 1,000 MG/100 ML BOTTLE IV SCH (21:48)
[2022-06-02] MEDS: SODIUM CHLORIDE FLUSH 0.9% 10 ML SYRINGE IVP SCH ×3 (00:16→17:29)
[2022-06-02] MEDS: NITROGLYCERIN 2% PASTE TOP SCH ×3 (01:22→17:27)
[2022-06-02] MEDS: PROPOFOL 1000 MG/100 ML 1,000 MG/100 ML BOTTLE IV SCH ×2 (02:36→08:00)
[2022-06-02 05:25] LABS: ABG BASE EXCESS 3.3 mmol/L (-2.0-3.0); ABG HCO3 25.1 mmol/L (22.0-26.0); ABG OXYGEN SATURATION 94 % (94-98); ABG PCO2 30 mmHg (34-45); ABG PH 7.54 (7.35-7.45); ABG PO2 68 mmHg (80-100); ALLEN TEST POSITIVE
[2022-06-02 05:26] LABS: ABG MODE OF VENTILATION ASSIST/CONTROL; ABG RESPIRATORY RATE 380 b/min
[2022-06-02 05:39] LABS: BASOPHILS % (AUTO) 0.3 %; EOSINOPHILS # (AUTO) 0.8 10^3/uL (0.0-0.7); EOSINOPHILS % (AUTO) 5.9 %; HCT - HEMATOCRIT 34.8 % (37.0-47.0); HGB - HEMOGLOBIN 12.5 g/dL (12.0-16.0); LYMPHOCYTES # (AUTO) 1.7 10^3/uL (1.5-3.5); LYMPHOCYTES % (AUTO) 12.4 %; MEAN CORPUSCULAR HEMOGLOBIN 32.1 pg (27.0-31.0); MEAN CORPUSCULAR HGB CONC 35.9 g/dL (32.0-36.0); MEAN CORPUSCULAR VOLUME 89.5 fL (81.0-99.0); MEAN PLATELET VOLUME 9.4 fL (7.9-10.8); MONOCYTES # (AUTO) 1.1 10^3/uL (0.0-1.0); MONOCYTES % (AUTO) 8.2 %; NEUTROPHILS # (AUTO) 9.9 10^3/uL (1.5-6.6); NEUTROPHILS % (AUTO) 72.8 %; PLT - PLATELET COUNT 318 10^3/uL (130-450); RED BLOOD COUNT 3.89 10^6/uL (4.20-5.40); RED CELL DISTRIBUTION WIDTH 12.8 % (12.0-15.0); WHITE BLOOD COUNT 13.6 x10^3/uL (4.8-10.8)
[2022-06-02 05:43] LABS: CALCIUM, IONIZED 1.05 mmol/L (1.15-1.33); VBG PH 7.52 (7.31-7.41)
[2022-06-02] MEDS ORDERED: CALCIUM GLUC 1,000MG/50ML-NACL 1,000 MG/50 ML BAG IV ONE (05:46)
[2022-06-02 05:56] LABS: CALCIUM 8.4 mg/dL (8.5-10.3); CREATININE 0.7 mg/dL (0.4-1.0); MAGNESIUM 2.4 mg/dL (1.7-2.8); PHOSPHORUS 3.2 mg/dL (2.5-4.6); POTASSIUM 2.7 mmol/L (3.5-5.0)
[2022-06-02] MEDS: POTASSIUM CHLOR 10 MEQ/100 ML 10 MEQ/100 ML BAG IV SCH ×6 (06:30→13:05)
--- NOTE | 2022-06-02 08:14 | ED Physician Documentation ---
ED Addendum - Addendum Addendum: 06/02/22 08:14 Patient seen and examined at bedside, she is in the ICU but remains in ED status patient. She is lightly sedated and wakes up and follows commands. She is able to tell me she is not in pain by shaking her head. Vital signs are relatively normal on the monitor with mild hypertension at 137/71, heart rate in the 70s, she is breathing comfortably on the vent. Her lungs are clear, belly benign, bounding pedal pulses and no obvious fluid overload. Last blood gas was done at 0519 showing a respiratory alkalosis and her respiratory rate was reportedly decreased and I am waiting for a repeat blood gas. Her potassium this morning was 2.7 and is being replaced by ICU protocol. She is ruled in for [place] with a troponin going from 250 to up at to a peak of 2643. Reportedly goals of care are for transfer for aggressive care, coronary angiography etc. Local hospitals are at capacity/on diversion and she is waitlisted at multiple facilities and for the [facility]. Appreciate hospitalist consultation for ongoing ICU level management for this patient that is boarding as an ED patient. 06/02/22 11:49 Respiratory therapist felt she had good weaning parameters and I authorize extubation. She was extubated around 1130 this morning and was reportedly doing well. I will reassess in a bit. 06/02/22 13:13 Patient seen and examined at bedside. She is appearing comfortable talking without respiratory distress. Vital signs are unremarkable. She denies chest pain or trouble breathing. She would like to be discharged, I discussed with her that at the very least we should probably await echocardiography. 06/02/22 15:18 Preliminary echocardiogram result reviewed. EF of 60 to 65% with grade 1 diastolic dysfunction, she comments on no regional wall motion abnormalities but then says in some images there could be focal hypokinesis of the mid anterolateral wall. Mild LAE. Trace MR. Mild TR. Hypertrophic intra-atrial septum 06/02/22 15:57 Patient seen at bedside, continuing to feel well and hungry. Updated with echo results, discussed that we are still trying to transfer, but no beds at tertiary facilities have come available so far today. She would like to go home, discussed with her that at the earliest that might be tomorrow with discussion of need for follow-up with cardiology. Critical care time 38 minutes in total today mostly with bedside patient care and ordering. As well as documentation. No separately billable procedures were performed.
[2022-06-02] MEDS ORDERED: ASPIRIN 300 MG SUPP PR SCH (09:00)
[2022-06-02] MEDS ORDERED: PANTOPRAZOLE 40 MG VIAL IV SCH (09:00)
[2022-06-02] MEDS ORDERED: FUROSEMIDE 40 MG/4 ML VIAL IVP SCH (09:00)
[2022-06-02] MEDS: carvediloL 3.125 MG TABLET PO SCH ×2 (09:38→21:30)
[2022-06-02] MEDS: ENOXAPARIN 80 MG/0.8 ML SYRINGE SUBQ SCH ×2 (09:46→21:30)
[2022-06-02] MEDS: LEVALBUTEROL 1.25 MG/3 ML NEB INH SCH ×3 (09:51→15:05)
--- NOTE | 2022-06-02 10:16 | XRAY Report ---
PROCEDURE: Chest 1 View X-Ray INDICATIONS: F/U CHF vs pneumonia TECHNIQUE: One view of the chest was acquired. COMPARISON: 06/01/2020 to and 04/17/2022 FINDINGS: Surgical changes and devices: ET tube tip is now 1.8 cm above the quan. NG tube tip is below the l eft hemidiaphragm.. Lungs and pleura: No pleural effusions or pneumothorax. Pulmonary vascular congestion is seen. No de finite focal infiltrate. Mediastinum: Mediastinal contours appear normal. Heart size is enlarged. Bones and chest wall: No suspicious bony lesions. Overlying soft tissues appear unremarkable. IMPRESSION: Cardiomegaly and pulmonary vascular congestion. No definite focal infiltrate. No significant pleural effusion or pneumothorax. Reviewed by: Brady Arora MD on 06/02/2022 10:15 AM PDT Approved by: Brady Arora MD on 06/02/2022 10:15 AM PDT Station ID: [id number]
[2022-06-02] MEDS: PIPERACILLIN/TAZOBACTAM 4.5 GM in SODIUM CHLORIDE 0.9% MINIBAG 100 ML IV SCH ×2 (12:04→19:46)
[2022-06-02] MEDS ORDERED: PHENOL THROAT SPRAY 177 ML MM PRN (16:32)
[2022-06-02] MEDS ORDERED: BACITRACIN ZINC OINT 1 PACKET TOP PRN (16:55)
[2022-06-02] MEDS ORDERED: BACITRACIN ZINC OINT 1 PACKET TOP ONE (17:14)
[2022-06-02] MEDS: POTASSIUM CHLORIDE 20 MEQ TABLET PO SCH ×2 (17:27→18:53)
--- NOTE | 2022-06-02 17:44 | PROVIDER PROGRESS NOTE ---
Subjective - Prog Note Date Prog Note Date: 06/02/22 Prog Note Time: 17:43 - Subjective Pt reports feeling: Improved Subjective: This morning respiratory therapy work with her. On propofol she was still awake, alert and following commands. Without propofol she was even more awake. Able to be extubated successfully. She is anxious to go home. Denies chest pain. Still a little bit short of breath. Overnight she not had any arrhythmias. Vital signs have remained stable. She is currently 4 L nasal cannula saturating at 94%. Over the last hour or 2 she has developed a steady bronchitic cough. She says that she gets some type of cold once a year and is accompanied by this cough. No congestion, no fever. But she feels like her chest is starting to tighten. She is asking for albuterol Current Medications - Current Medications Current Medications: Active Medications Acetaminophen (Acetaminophen 325 Mg Tablet) 650 mg PO Q4HR PRN PRN Reason: Pain 1 to 4, or Fever Aspirin (Aspirin Chew 81 Mg Tablet) 81 mg PO DAILY [facility] Bacitracin (Bacitracin Zinc Oint 1 Packet) 1 packet TOP PRN PRN PRN Reason: Skin Care Stop: 06/04/22 23:59 Last Admin: 06/02/22 17:27 Dose: 1 packet Carvedilol (Carvedilol 3.125 Mg Tablet) 3.125 mg PO BID [facility] Last Admin: 06/02/22 09:38 Dose: 3.125 mg Enoxaparin Sodium (Enoxaparin 80 Mg/0.8 Ml Syringe) 80 mg SUBQ BID [facility] Last Admin: 06/02/22 09:46 Dose: 80 mg Furosemide (Furosemide 40 Mg/4 Ml Vial) 40 mg IVP DAILY [facility] Last Admin: 06/02/22 09:41 Dose: 40 mg Propofol (Diprivan) 1,000 mg in 100 mls @ 5.364 mls/hr IV .[id number] [facility]; Protocol Last Titration: 06/02/22 09:55 Dose: 0 mcg/kg/min, 0 mls/hr Piperacillin Sod/Tazobactam (Sod 4.5 gm/ Sodium Chloride) 100 mls @ 25 mls/hr IV Q8H [facility] Last Infusion: 06/02/22 16:05 Dose: Infused Levalbuterol HCl (Levalbuterol 1.25 Mg/3 Ml Neb) 1.25 mg INH Q6H [facility] Last Admin: 06/02/22 15:05 Dose: 1.25 mg Nitroglycerin (Nitroglycerin 2% Paste) 0.5 inch TOP Q8H [facility] Last Admin: 06/02/22 17:27 Dose: 0.5 inch Ondansetron HCl (Ondansetron 4 Mg/2 Ml Vial) 4 mg IVP Q6HR PRN PRN Reason: Nausea / Vomiting Pantoprazole Sodium (Pantoprazole 40 Mg Vial) 40 mg IV DAILY [facility] Last Admin: 06/02/22 09:40 Dose: 40 mg Phenol/Menthol (Phenol Throat [place] 177 Ml) 2 sprays MM Q2HR PRN PRN Reason: Throat Pain Stop: 06/04/22 23:59 Last Admin: 06/02/22 16:49 Dose: 2 sprays Potassium Chloride (Potassium Chloride 20 Meq Tablet) 20 meq PO Q2H [facility]; Protocol Stop: 06/02/22 19:01 Last Admin: 06/02/22 17:27 Dose: 20 meq Sodium Chloride (Sodium Chloride Flush 0.9% 10 Ml Syringe) 10 ml IVP 0100,0900,1700 [facility] Last Admin: 06/02/22 17:29 Dose: 10 ml Sodium Chloride (Sodium Chloride Flush 0.9% 10 Ml Syringe) 10 ml IVP PRN PRN PRN Reason: NEEDED PER PROVIDER ORDERS Objective - Vital Signs/Intake & Output Reviewed Vital Signs: Yes Vital Signs: Vital Signs x48h Temp Pulse Resp BP Pulse Ox O2 Flow Rate 06/02/22 17:00 88 22 115/64 94 06/02/22 16:00 37.4 C 85 16 120/61 92 06/02/22 15:06 86 20 4 06/02/22 15:00 93 18 117/63 95 06/02/22 14:00 92 20 126/57 L 95 06/02/22 13:00 87 15 110/90 H 94 06/02/22 12:00 37.3 C 20 148/68 H 93 06/02/22 11:30 2 06/02/22 11:00 88 19 146/91 H 93 06/02/22 10:53 88 06/02/22 10:09 88 06/02/22 10:07 21 L 22 06/02/22 10:00 85 19 144/89 H 97 Intake & Output: Intake & Output 05/30/22 05/31/22 06/01/22 06/02/22 23:59 23:59 23:59 23:59 Intake Total 2400.000 892.618 Output Total 1465 3180 Balance 935.000 -2287.382 - Objective General Appearance: positive: Alert, Mild distress (From occasional bronchitic coughing), Other (Short statured, moderately overweight, cheerful) Eyes Bilateral: positive: PERRL, EOMI ENT: positive: No signs of dehydration Neck: positive: No JVD Respiratory: positive: Other (No wheezing but voice is hoarse, booming cough) Cardiovascular: positive: Regular rate & rhythm, Tachycardia. negative: Gallop/S4, Friction rub Abdomen: positive: Non-tender, No organomegaly, Nml bowel sounds, No distention Skin: positive: Warm, Dry Extremities: positive: Full ROM, No pedal edema, Other (Hands are puffy and swollen and she hates it) Neurologic/Psychiatric: positive: Oriented x3, CN's nml (2-12), Motor nml, Sensation nml - Lab Results Fish Bones: 06/02/22 05:31 06/02/22 15:45 Other Labs: Lab Results x24hrs 06/02/22 06/02/22 06/02/22 Range/Units 15:45 15:45 05:31 WBC (4.8-10.8) x10^3/uL RBC (4.20-5.40) 10^6/uL Hgb (12.0-16.0) g/dL Hct (37.0-47.0) % MCV (81.0-99.0) fL MCH (27.0-31.0) pg MCHC (32.0-36.0) g/dL RDW (12.0-15.0) % Plt Count (130-450) 10^3/uL MPV (7.9-10.8) fL Neut # (Auto) (1.5-6.6) 10^3/uL Lymph # (Auto) (1.5-3.5) 10^3/uL [place]ven # (Auto) (0.0-1.0) 10^3/uL Eos # (Auto) (0.0-0.7) 10^3/uL Baso # (Auto) (0.0-0.1) 10^3/uL Absolute Nucleated RBC x10^3/uL Nucleated RBC % /100WBC Bld Gas Analysis Time Sample Site ABG pH (7.35-7.45) ABG pCO2 (34-45) mmHg ABG pO2 (80-100) mmHg ABG HCO3 (22.0-26.0) mmol/L ABG Total CO2 (21.0-29.0) MMOL/L ABG O2 Saturation (94-98) % ABG Base Excess (-2.0-3.0) mmol/L [place] Test VBG pH 7.520 H (7.31-7.41) Ionized Calcium 1.05 L (1.15-1.33) mmol/L Respiration Rate b/min O2 Delivery Device Vent Mode FiO2 Tidal Volume mL PEEP cmH2O Sodium (135-145) mmol/L Potassium 3.3 L (3.5-5.0) mmol/L Chloride (101-111) mmol/L Carbon Dioxide (21-32) mmol/L Anion Gap (6-13) BUN (6-20) mg/dL Creatinine (0.4-1.0) mg/dL Estimated GFR (MDRD) (>89) Glucose (70-100) mg/dL Lactic Acid (0.5-2.2) mmol/L Calcium (8.5-10.3) mg/dL Phosphorus (2.5-4.6) mg/dL Magnesium (1.7-2.8) mg/dL Troponin I High Sens 1329.0 H* (2.3-14.8) ng/L Nasal Screen MRSA (PCR) (NEGATIVE) 06/02/22 06/02/22 06/02/22 Range/Units 05:31 05:31 05:31 WBC 13.6 H (4.8-10.8) x10^3/uL RBC 3.89 L (4.20-5.40) 10^6/uL Hgb 12.5 (12.0-16.0) g/dL Hct 34.8 L (37.0-47.0) % MCV 89.5 (81.0-99.0) fL MCH 32.1 H (27.0-31.0) pg MCHC 35.9 (32.0-36.0) g/dL RDW 12.8 (12.0-15.0) % Plt Count 318 (130-450) 10^3/uL MPV 9.4 (7.9-10.8) fL Neut # (Auto) 9.9 H (1.5-6.6) 10^3/uL Lymph # (Auto) 1.7 (1.5-3.5) 10^3/uL [place]ven # (Auto) 1.1 H (0.0-1.0) 10^3/uL Eos # (Auto) 0.8 H (0.0-0.7) 10^3/uL Baso # (Auto) 0.0 (0.0-0.1) 10^3/uL Absolute Nucleated RBC 0.00 x10^3/uL Nucleated RBC % 0.0 /100WBC Bld Gas Analysis Time Sample Site ABG pH (7.35-7.45) ABG pCO2 (34-45) mmHg ABG pO2 (80-100) mmHg ABG HCO3 (22.0-26.0) mmol/L ABG Total CO2 (21.0-29.0) MMOL/L ABG O2 Saturation (94-98) % ABG Base Excess (-2.0-3.0) mmol/L [place] Test VBG pH (7.31-7.41) Ionized Calcium (1.15-1.33) mmol/L Respiration Rate b/min O2 Delivery Device Vent Mode FiO2 Tidal Volume mL PEEP cmH2O Sodium 135 (135-145) mmol/L Potassium 2.7 L (3.5-5.0) mmol/L Chloride 102 (101-111) mmol/L Carbon Dioxide 23 (21-32) mmol/L Anion Gap 10.0 (6-13) BUN 19 (6-20) mg/dL Creatinine 0.7 (0.4-1.0) mg/dL Estimated GFR (MDRD) 82 L (>89) Glucose 125 H (70-100) mg/dL Lactic Acid 0.9 (0.5-2.2) mmol/L Calcium 8.4 L (8.5-10.3) mg/dL Phosphorus 3.2 (2.5-4.6) mg/dL Magnesium 2.4 (1.7-2.8) mg/dL Troponin I High Sens (2.3-14.8) ng/L Nasal Screen MRSA (PCR) (NEGATIVE) 06/02/22 06/02/22 06/01/22 Range/Units 05:31 05:19 18:25 WBC (4.8-10.8) x10^3/uL RBC (4.20-5.40) 10^6/uL Hgb (12.0-16.0) g/dL Hct (37.0-47.0) % MCV (81.0-99.0) fL MCH (27.0-31.0) pg MCHC (32.0-36.0) g/dL RDW (12.0-15.0) % Plt Count (130-450) 10^3/uL MPV (7.9-10.8) fL Neut # (Auto) (1.5-6.6) 10^3/uL Lymph # (Auto) (1.5-3.5) 10^3/uL [place] # (Auto) (0.0-1.0) 10^3/uL Eos # (Auto) (0.0-0.7) 10^3/uL Baso # (Auto) (0.0-0.1) 10^3/uL Absolute Nucleated RBC x10^3/uL Nucleated RBC % /100WBC Bld Gas Analysis Time 0578 6589 Sample Site RIGHT RADIAL LEFT RADIAL ABG pH 7.54 H 7.46 H (7.35-7.45) ABG pCO2 30 L 31 L (34-45) mmHg ABG pO2 68 L 72 L (80-100) mmHg ABG HCO3 25.1 21.4 L (22.0-26.0) mmol/L ABG Total CO2 26.0 22.4 (21.0-29.0) MMOL/L ABG O2 Saturation 94 94 (94-98) % ABG Base Excess 3.3 H -1.4 (-2.0-3.0) mmol/L [place] Test POSITIVE POSITIVE VBG pH (7.31-7.41) Ionized Calcium (1.15-1.33) mmol/L Respiration Rate 380 24 b/min O2 Delivery Device VENTILATOR VENTILATOR Vent Mode ASSIST/CONTROL VC FiO2 50.00 40.00 Tidal Volume 380 mL PEEP 5 5 cmH2O Sodium (135-145) mmol/L Potassium (3.5-5.0) mmol/L Chloride (101-111) mmol/L Carbon Dioxide (21-32) mmol/L Anion Gap (6-13) BUN (6-20) mg/dL Creatinine (0.4-1.0) mg/dL Estimated GFR (MDRD) (>89) Glucose (70-100) mg/dL Lactic Acid (0.5-2.2) mmol/L Calcium (8.5-10.3) mg/dL Phosphorus (2.5-4.6) mg/dL Magnesium (1.7-2.8) mg/dL Troponin I High Sens 2017.6 H* (2.3-14.8) ng/L Nasal Screen MRSA (PCR) (NEGATIVE) 06/01/22 Range/Units 18:04 WBC (4.8-10.8) x10^3/uL RBC (4.20-5.40) 10^6/uL Hgb (12.0-16.0) g/dL Hct (37.0-47.0) % MCV (81.0-99.0) fL MCH (27.0-31.0) pg MCHC (32.0-36.0) g/dL RDW (12.0-15.0) % Plt Count (130-450) 10^3/uL MPV (7.9-10.8) fL Neut # (Auto) (1.5-6.6) 10^3/uL Lymph # (Auto) (1.5-3.5) 10^3/uL [place] # (Auto) (0.0-1.0) 10^3/uL Eos # (Auto) (0.0-0.7) 10^3/uL Baso # (Auto) (0.0-0.1) 10^3/uL Absolute Nucleated RBC x10^3/uL Nucleated RBC % /100WBC Bld Gas Analysis Time Sample Site ABG pH (7.35-7.45) ABG pCO2 (34-45) mmHg ABG pO2 (80-100) mmHg ABG HCO3 (22.0-26.0) mmol/L ABG Total CO2 (21.0-29.0) MMOL/L ABG O2 Saturation (94-98) % ABG Base Excess (-2.0-3.0) mmol/L [place] Test VBG pH (7.31-7.41) Ionized Calcium (1.15-1.33) mmol/L Respiration Rate b/min O2 Delivery Device Vent Mode FiO2 Tidal Volume mL PEEP cmH2O Sodium (135-145) mmol/L Potassium (3.5-5.0) mmol/L Chloride (101-111) mmol/L Carbon Dioxide (21-32) mmol/L Anion Gap (6-13) BUN (6-20) mg/dL Creatinine (0.4-1.0) mg/dL Estimated GFR (MDRD) (>89) Glucose (70-100) mg/dL Lactic Acid (0.5-2.2) mmol/L Calcium (8.5-10.3) mg/dL Phosphorus (2.5-4.6) mg/dL Magnesium (1.7-2.8) mg/dL Troponin I High Sens (2.3-14.8) ng/L Nasal Screen MRSA (PCR) NEGATIVE (NEGATIVE) ABX Reporting Has patient been on IV antibiotics over the past 48 hours?: Yes Assessment/Plan - Problem List (1) Acute WA Impression: Timing of her symptoms was not available at initial presentation and it was not known if the left bundle branch block was new or old at presentation, therefore she was not a candidate for TPA. By cycling her troponins she has ruled in for an WA and the LBBB has resolved, confirming an acute WA. Initial troponin in the emergency room was 252. She peaked at 2643. By this afternoon at 3:45 PM she is down to 1329. There have been no arrhythmias. Because she was intubated, she was getting medications via NG or per rectum. She is now on p.o. meds since she has been extubated and is on aspirin, Coreg, Lovenox. She was started on scheduled Protonix iv for prophylaxis from GI bleed/stress ulcer. change that to po as well. Today an Echocardiogram was ordered and she has an ejection fraction of 60 to 65%. There are no regional wall motion abnormalities. However this is a preliminary report. There may be some focal hypokinesis of the mid anterolateral wall. Mild increase in left atrial volume index. No significant valvular heart disease. She needs urgent transfer for coronary angiography and cardiology management. However, the patient feels that she is back to baseline. She asked she assess to go home. Emergency room provider is her primary caregiver and I am in consul tation. They have discussed it between the two them and he is convinced her to stay at least 1 more night for observation of her arrhythmias, CHF after an WA. 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 The Echo showed: Moderately dilated left atrium and right atrium. Normal aortic root diameter with mural atherosclerosis. Normal left ventricular size with concentric LV hypertrophy. Mild global LV hypokinesis, but inferior wall severely hypokinetic, LVEF estimated at 40%. Doppler shows mild LV diastolic dysfunction is present (grade 1). Moderately dilated right ventricle, moderately depressed RV function. No pericardial effusion seen. Mitral annulus calcified, aortic valve sclerotic but has good motion. Tricuspid and pulmonic valves appear structurally normal. Doppler of the valves shows mild mitral regurgitation, moderate tricuspid regurgitation, and trace aortic and pulmonic regurgitation. PA pressure could not be estimated. (2) Acute respiratory failure with hypoxia resolved. Conclusion/Plan: She was in extremist with respiratory distress and was intubated in the ED upon presentation She was extubated today without any difficulty.No further respiratory distress. (3) Abnormal CT scan, chest, with severe cough Conclusion/Plan: She has CT chest findings reported as bronchomalacia, interstitial changes and atelectasis versus infiltrate. She also has an elevated WBC of 21 and elevated Lactic Acid, supporting a possible pneumonia. Blood cultures are negative. No sputum culture sent. On empiric IV antibiotic, continue Zosyn. Day #2 Yesterday's fluid balance was +935 cc. As of today she is -2287 cc. Follow daily BMP and magnesium in a patient on diuretics. Baldwin should be placed for monitoring I's and O's carefully in this critical patient. Change to po lasix and not IV. The patient needs transfer to a higher level of care with pickle solution maker/pulmonary consult regarding her chest CT findings. Add robitussin AC xopenex prn (4) Elevated lactic acid level Conclusion/Plan: This could be evidence of (pulmonary or other) infection, since she does not hav e DKA or ketosis according to her BMP, and we are not aware if she may have had hypotension causing hypoperfusion. Lactic acid was 5.6 on admission. By 4:40 PM yesterday she was 2.0. This morning she is 0.9. Could she have had lactic acidosis from hypoxia and pneumonia?
[2022-06-02] MEDS ORDERED: methylPREDNISolone SUCCINATE 40 MG/ML VIAL IVP STA (18:38)
[2022-06-02] MEDS ORDERED: LEVALBUTEROL 1.25 MG/3 ML NEB INH ONE (21:20)
[2022-06-03] MEDS: POTASSIUM CHLORIDE 20 MEQ TABLET PO SCH ×2 (00:05→01:38)
[2022-06-03] MEDS: SODIUM CHLORIDE FLUSH 0.9% 10 ML SYRINGE IVP SCH ×2 (00:13→09:11)
[2022-06-03] MEDS: NITROGLYCERIN 2% PASTE TOP SCH ×2 (01:02→09:10)
[2022-06-03] MEDS: LEVALBUTEROL 1.25 MG/3 ML NEB INH SCH ×3 (02:20→07:02)
[2022-06-03] MEDS: PIPERACILLIN/TAZOBACTAM 4.5 GM in SODIUM CHLORIDE 0.9% MINIBAG 100 ML IV SCH (04:24)
[2022-06-03 06:54] LABS: MAGNESIUM 2.2 mg/dL (1.7-2.8); PHOSPHORUS 3.5 mg/dL (2.5-4.6); POTASSIUM 3.8 mmol/L (3.5-5.0)
[2022-06-03] MEDS ORDERED: PANTOPRAZOLE 40 MG TABLET PO SCH (07:00)
[2022-06-03 07:23] LABS: CALCIUM, IONIZED 1.15 mmol/L (1.15-1.33); VBG PH 7.419 (7.31-7.41)
[2022-06-03] MEDS ORDERED: POTASSIUM CHLORIDE 20 MEQ/15 ML UDC PO ONE (08:01)
--- NOTE | 2022-06-03 08:40 | PROVIDER PROGRESS NOTE ---
Subjective - Prog Note Date Prog Note Date: 06/03/22 Prog Note Time: 08:38 - Subjective Subjective: No chest pain. Mild shortness of breath. Tearful. Recollecting the of her and loss of other people in her life. She has her power of district attorney forms in front of her and she is trying to figure out who can be her power of district attorney. She is a little bit scared about this next bit of being transferred to [facility] for cardiac eval Current Medications - Current Medications Current Medications: Active Medications Acetaminophen (Acetaminophen 325 Mg Tablet) 650 mg PO Q4HR PRN PRN Reason: Pain 1 to 4, or Fever Aspirin (Aspirin Chew 81 Mg Tablet) 81 mg PO DAILY [facility] Bacitracin (Bacitracin Zinc Oint 1 Packet) 1 packet TOP PRN PRN PRN Reason: Skin Care Stop: 06/04/22 23:59 Last Admin: 06/02/22 17:27 Dose: 1 packet Carvedilol (Carvedilol 3.125 Mg Tablet) 3.125 mg PO BID [facility] Last Admin: 06/02/22 21:30 Dose: 3.125 mg Enoxaparin Sodium (Enoxaparin 80 Mg/0.8 Ml Syringe) 80 mg SUBQ BID [facility] Last Admin: 06/02/22 21:30 Dose: 80 mg Piperacillin Sod/Tazobactam (Sod 4.5 gm/ Sodium Chloride) 100 mls @ 25 mls/hr IV Q8H [facility] Last Admin: 06/03/22 04:24 Dose: 25 mls/hr Levalbuterol HCl (Levalbuterol 1.25 Mg/3 Ml Neb) 1.25 mg INH Q6H [facility] Last Admin: 06/03/22 07:02 Dose: 1.25 mg Nitroglycerin (Nitroglycerin 2% Paste) 0.5 inch TOP Q8H [facility] Last Admin: 06/03/22 01:02 Dose: 0.5 inch Ondansetron HCl (Ondansetron 4 Mg/2 Ml Vial) 4 mg IVP Q6HR PRN PRN Reason: Nausea / Vomiting Pantoprazole Sodium (Pantoprazole 40 Mg Tablet) 40 mg PO QDAC [facility] Last Admin: 06/03/22 06:12 Dose: 40 mg Phenol/Menthol (Phenol Throat [place] 177 Ml) 2 sprays MM Q2HR PRN PRN Reason: Throat Pain Stop: 06/04/22 23:59 Last Admin: 06/02/22 16:49 Dose: 2 sprays Sodium Chloride (Sodium Chloride Flush 0.9% 10 Ml Syringe) 10 ml IVP 0100,0900,1700 ABHI Last Admin: 06/03/22 00:13 Dose: Not Given Sodium Chloride (Sodium Chloride Flush 0.9% 10 Ml Syringe) 10 ml IVP PRN PRN PRN Reason: NEEDED PER PROVIDER ORDERS Objective - Vital Signs/Intake & Output Reviewed Vital Signs: Yes Vital Signs: Vital Signs x48h Temp Pulse Resp BP Pulse Ox O2 Flow Rate 06/03/22 08:07 36.7 C 86 20 150/77 H 97 3 06/03/22 07:10 4 06/03/22 07:06 82 23 06/03/22 06:00 36.8 C 85 20 118/74 95 3 06/03/22 04:00 36.9 C 89 21 134/72 H 91 L 3 06/03/22 03:10 90 30 H 3 06/03/22 03:00 81 14 133/74 H 92 3 06/03/22 02:00 86 18 144/73 H 92 3 06/03/22 01:00 37.1 C 86 23 137/65 H 90 L 3 Intake & Output: Intake & Output 05/31/22 06/01/22 06/02/22 06/03/22 23:59 23:59 23:59 23:59 Intake Total 2400.000 4083.006 3822 Output Total 1465 3430 232 Balance 935.000 -2147.382 858 - Objective General Appearance: positive: No acute distress (Short statured female at 5 foot 1 inches tall. 89.4 kg. Sad. Furrowed brow.), Alert, Other Eyes Bilateral: positive: PERRL, EOMI ENT: positive: No signs of dehydration Neck: positive: No JVD Respiratory: positive: Chest non-tender, Rhonchi (That clear with cough). negative: Wheezes, Rales Cardiovascular: positive: Regular rate & rhythm Abdomen: positive: Non-tender, No organomegaly, Nml bowel sounds, No distention, Other (Large pannus) Skin: positive: Warm Extremities: positive: Full ROM, No pedal edema Neurologic/Psychiatric: positive: Oriented x3, CN's nml (2-12), Motor nml - Lab Results Fish Bones: 06/02/22 05:31 06/03/22 06:33 Other Labs: Lab Results x24hrs 06/03/22 06/03/22 06/02/22 Range/Units 07:15 06:33 23:14 VBG pH 7.419 H (7.31-7.41) Ionized Calcium 1.15 (1.15-1.33) mmol/L Potassium 3.8 3.5 (3.5-5.0) mmol/L Phosphorus 3.5 (2.5-4.6) mg/dL Magnesium 2.2 (1.7-2.8) mg/dL Troponin I High Sens (2.3-14.8) ng/L 06/02/22 06/02/22 Range/Units 15:45 15:45 VBG pH (7.31-7.41) Ionized Calcium (1.15-1.33) mmol/L Potassium 3.3 L (3.5-5.0) mmol/L Phosphorus (2.5-4.6) mg/dL Magnesium (1.7-2.8) mg/dL Troponin I High Sens 1329.0 H* (2.3-14.8) ng/L ABX Reporting Has patient been on IV antibiotics over the past 48 hours?: Yes Assessment/Plan - Problem List (1) Acute MD Impression: Timing of her symptoms was not available at initial presentation and it was not known if the left bundle branch block was new or old at presentation, therefore she was not a candidate for TPA. By cycling her troponins she has ruled in for an MD and the LBBB has resolved, confirming an acute MD. Initial troponin in the emergency room was 252. She peaked at 2643. By this afternoon at 3:45 PM she is down to 1329. There have been no arrhythmias. Because she was intubated, she was getting medications via NG or per rectum. She is now on p.o. meds since she has been extubated on the morning of 06/02 and is on aspirin, Coreg, Lovenox. She was started on scheduled Protonix iv for prophylaxis from GI bleed/stress ulcer. That was changed that to po as well. Formal Echocardiogram with the automotive brake technician was done 06/02 and it was read by MD Griffin from [facility]. Patient has an ejection fraction of 60 to 65%. There are no regional wall motion abnormalities. However this is a preliminary report. There may be some focal hypokinesis of the mid anterolateral wall. Mild increase in left atrial volume index. No significant valvular heart disease. She needs urgent transfer for coronary angiography and cardiology management. However, the patient feels that she is back to baseline. She asked she assess to go home. Emergency room provider is her primary caregiver and I am in consultation. They have discussed it between the two them and he is convinced her to stay at least 1 more night for observation of her arrhythmias, CHF after an MD. This morning [facility] has a bed and has accepted her. she is willing to go over. Trying to wrap her head around the fact she had such a serious event. 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 The Echo showed: Moderately dilated left atrium and right atrium. Normal aortic root diameter with mural atherosclerosis. Normal left ventricular size with concentric LV hypertrophy. Mild global LV hypokinesis, but inferior wall severely hypokinetic, LVEF estimated at 40%. Doppler shows mild LV diastolic dysfunction is present (grade 1). Moderately dilated right ventricle, moderately depressed RV function. No pericardial effusion seen. Mitral annulus calcified, aortic valve sclerotic but has good motion. Tricuspid and pulmonic valves appear structurally normal. Doppler of the valves shows mild mitral regurgitation, moderate tricuspid regurgitation, and trace aortic and pulmonic regurgitation. PA pressure could not be estimated. (2) Acute respiratory failure with hypoxia resolved. Conclusion/Plan: She was in extremist with respiratory distress and was intubated in the ED upon presentation She was extubated 06/02 without any difficulty.No further respiratory distress. (3) Abnormal CT scan, chest, with severe cough Conclusion/Plan: She has CT chest findings reported as bronchomalacia, interstitial changes and atelectasis versus infiltrate. She also has an elevated WBC of 21 and elevated Lactic Acid, supporting a possible pneumonia. Blood cultures are negative. No sputum culture sent. On empiric IV antibiotic, continue Zosyn. Day #3 06/01 fluid balance was +935 cc. Timing of her symptoms was not available at initial presentation and it was not known if the left bundle branch block was new or old at presentation, therefore she was not a candidate for TPA. By cycling her troponins she has ruled in for an MD and the LBBB has resolved, confirming an acute MD. Initial troponin in the emergency room was 252. She peaked at 2643. By this afternoon at 3:45 PM she is down to 1329. There have been no arrhythmias. Because she was intubated, she was getting medications via NG or per rectum. She is now on p.o. meds since she has been extubated and is on aspirin, Coreg, Lovenox. She was started on scheduled Protonix iv for prophylaxis from GI bleed/stress ulcer. change that to po as well. Today an Echocardiogram was ordered and she has an ejection fraction of 60 to 65%. There are no regional wall motion abnormalities. However this is a preliminary report. There may be some focal hypokinesis of the mid anterolateral wall. Mild increase in left atrial volume index. No significant valvular heart disease. She needs urgent transfer for coronary angiography and cardiology management. However, the patient feels that she is back to baseline. She asked she assess to go home. Emergency room provider is her primary caregiver and I am in consultation. They have discussed it between the two them and he is convinced her to stay at least 1 more night for observation of her arrhythmias, CHF after an MD. 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 The Echo showed: Moderately dilated left atrium and right atrium. Normal aortic root diameter with mural atherosclerosis. Normal left ventricular size with concentric LV hypertrophy. Mild global LV hypokinesis, but inferior wall severely hypokinetic, LVEF estimated at 40%. Doppler shows mild LV diastolic dysfunction is present (grade 1). Moderately dilated right ventricle, moderately depressed RV function. No pericardial effusion seen. Mitral annulus calcified, aortic valve sclerotic but has good motion. Tricuspid and pulmonic valves appear structurally normal. Doppler of the valves shows mild mitral regurgitation, moderate tricuspid regurgitation, and trace aortic and pulmonic regurgitation. PA pressure could not be estimated. (2) Acute respiratory failure with hypoxia resolved. Conclusion/Plan: She was in extremist with respiratory distress and was intubated in the ED upon presentation She was extubated today without any difficulty.No further respiratory distress. (3) Abnormal CT scan, chest, with severe cough Conclusion/Plan: She has CT chest findings reported as bronchomalacia, interstitial changes and atelectasis versus infiltrate. She also has an elevated WBC of 21 and elevated Lactic Acid, supporting a possible pneumonia. Blood cultures are negative. No sputum culture sent. gonzalo GONZALES offered and she is on xopenex for her cough from 06/02 On empiric IV antibiotic, continue Zosyn. Day #2 06/01 fluid balance was +935 cc. June 02 fluid balance was -2147. As of this morning she is +858 cc. Follow daily BMP and magnesium in a patient on diuretics. Baldwin should be placed for monitoring I's and O's carefully in this critical patient. Change to po lasix and not IV 06/02, The patient needs transfer to a higher level of care with membership sales representative/pulmonary consult regarding her chest CT findings. (4) Elevated lactic acid level resolved. Conclusion/Plan: This could be evidence of (pulmonary or other) infection, since she does not have DKA or ketosis according to her BMP, and we are not aware if she may have had hypotension causing hypoperfusion. Lactic acid was 5.6 on presentation to the ER. By 4:40 PM 06/01 she was 2.0. 06/02 am she is 0.9. Could she have had lactic acidosis from hypoxia and pneumonia? Follow daily BMP and magnesium in a patient on diuretics. Baldwin should be placed for monitoring I's and O's carefully in this critical patient. Change to po lasix and not IV. The patient needs transfer to a higher level of care with membership sales representative/pulmonary consult regarding her chest CT findings. Add yaron GONZALES xopenex prn
--- NOTE | 2022-06-03 08:46 | ED Physician Documentation ---
ED Addendum - Addendum Addendum: 06/03/22 08:45 We received call from [facility] in [place] that they do have a bed available. I talked with Dr. Gillis who is on for cardiology who says he feels it is reasonable for the patient to be better evaluated at their facility. He defers to the hospitalist. I am awaiting conversation with the hospitalist to accept formally the patient. [facility] says they do then have a bed available for transfer this morning.
[2022-06-03] MEDS: carvediloL 3.125 MG TABLET PO SCH (08:53)
[2022-06-03] MEDS: ENOXAPARIN 80 MG/0.8 ML SYRINGE SUBQ SCH ×2 (08:53→09:04)
[2022-06-03] MEDS ORDERED: ASPIRIN CHEW 81 MG TABLET PO SCH (09:00)
[2022-06-03 09:22] LABS: BASOPHILS % (AUTO) 0.3 %; EOSINOPHILS # (AUTO) 0.1 10^3/uL (0.0-0.7); HCT - HEMATOCRIT 38.9 % (37.0-47.0); HGB - HEMOGLOBIN 12.9 g/dL (12.0-16.0); LYMPHOCYTES % (AUTO) 17.6 %; MEAN CORPUSCULAR HEMOGLOBIN 30.6 pg (27.0-31.0); MEAN CORPUSCULAR HGB CONC 33.2 g/dL (32.0-36.0); MEAN CORPUSCULAR VOLUME 92.2 fL (81.0-99.0); MEAN PLATELET VOLUME 9.2 fL (7.9-10.8); MONOCYTES # (AUTO) 0.4 10^3/uL (0.0-1.0); MONOCYTES % (AUTO) 3.8 %; NEUTROPHILS # (AUTO) 8.8 10^3/uL (1.5-6.6); NEUTROPHILS % (AUTO) 76.9 %; PLT - PLATELET COUNT 332 10^3/uL (130-450); RED BLOOD COUNT 4.22 10^6/uL (4.20-5.40); RED CELL DISTRIBUTION WIDTH 12.9 % (12.0-15.0); WHITE BLOOD COUNT 11.5 x10^3/uL (4.8-10.8)
[2022-06-03 09:33] LABS: PT - PROTHROMBIN TIME 11.6 secs (9.9-12.6)
[2022-06-03 09:34] LABS: CALCIUM 9.1 mg/dL (8.5-10.3); CREATININE 0.6 mg/dL (0.4-1.0); POTASSIUM 3.4 mmol/L (3.5-5.0)
[2022-06-03 11:10] VITALS: BP 142/70
== END 2022-06-03 10:37 | disposition short-term general hospital (02) ==
LOC: EDUNIT# → ED 00:03
DX: I21.9 Acute myocardial infarction, unspecified (principal); J96.01 Acute respiratory failure with hypoxia; I44.7 Left bundle-branch block, unspecified; Z99.11 Dependence on respirator [ventilator] status; R74.02 Elevation of levels of lactic acid dehydrogenase [LDH]; I10 Essential (primary) hypertension
CPT/HCPCS: 31500; 36415; 36600; 71045; 71275; 80048; 80053; 81001; 82330; 82803; 83605; 83690; 83735; 83880; 84100; 84132; 84484; 85025; 85610; 87040; 87150; 87493; 87633; 93005; 93306; 94002; 94003; 94640; 96365; 96366; 96367; 96368; 96372; 96375; 96376; 99291; A9270; J0330; J1650; J2250; Q9967; 81003; 87086; 94770

== ENCOUNTER → 2022-06-03 | Outpatient (CLI) | payer MEDICARE | END | disposition short-term general hospital (02) | LOC: EMS 10:57 | PROVIDERS: ATTEND Emergency Medicine | DX: I21.4 Non-ST elevation (NSTEMI) myocardial infarction (principal) | CPT/HCPCS: A0425; A0428 ==

== ENCOUNTER 2022-07-06 19:11 | Outpatient (CLI) | payer MEDICARE | END 2022-07-06 19:12 | disposition EMS.NT | LOC: EMS 19:11 | DX: R41.0 Disorientation, unspecified (principal) ==

== ENCOUNTER 2024-03-01 08:00 | Outpatient (CLI) | payer MEDICARE ==
--- NOTE | 2024-03-02 02:24 | XRAY Report ---
PROCEDURE: Chest 2V INDICATIONS: CHEST PAIN TECHNIQUE: 2 views of the chest were obtained. COMPARISON: None. FINDINGS: Surgical changes and devices: None. Lungs and pleura: No pleural effusions or pneumothorax. Lungs are clear. Mediastinum: Mediastinal contours appear normal. Heart size is normal. Bones and chest wall: No suspicious bony lesions. Overlying soft tissues appear unremarkable. IMPRESSION: Normal two-view chest x-ray Reviewed by: Dirk Marcus MD on 03/02/2024 1:23 AM BENY Approved by: Dirk Marcus MD on 03/02/2024 1:23 AM BENY Station ID: [id number]
== END 2024-03-01 23:59 | disposition home or self-care (01) ==
LOC: DI.S 08:00
PROVIDERS: ATTEND Emergency Medicine
DX: R07.9 Chest pain, unspecified (principal)

== ENCOUNTER 2024-03-02 10:05 | Outpatient (CLI) | payer MEDICARE ==
[2024-03-02 14:33] LABS: HCT - HEMATOCRIT 43.2 % (37.0-47.0); HGB - HEMOGLOBIN 13.1 g/dL (12.0-16.0); MEAN CORPUSCULAR HEMOGLOBIN 28.3 pg (27.0-31.0); MEAN CORPUSCULAR HGB CONC 30.3 g/dL (32.0-36.0); MEAN CORPUSCULAR VOLUME 93.3 fL (81.0-99.0); MEAN PLATELET VOLUME 10.3 fL (7.9-10.8); RED BLOOD COUNT 4.63 10^6/uL (4.20-5.40); RED CELL DISTRIBUTION WIDTH 13.9 % (12.0-15.0); WHITE BLOOD COUNT 9.1 x10^3/uL (4.8-10.8)
[2024-03-02 14:50] LABS: ALBUMIN 4.3 g/dL (3.2-5.5); ALBUMIN/GLOBULIN RATIO 1.6 (1.0-2.2); BILIRUBIN,TOTAL 0.4 mg/dL (0.2-1.0); CALCIUM 9.7 mg/dL (8.5-10.3); CREATININE 0.6 mg/dL (0.6-1.3); MAGNESIUM 2.1 mg/dL (1.7-2.3); POTASSIUM 4.1 mmol/L (3.5-4.5)
== END 2024-03-02 10:06 | disposition home or self-care (01) ==
LOC: LAB.S 10:05
PROVIDERS: ATTEND Emergency Medicine
DX: R07.9 Chest pain, unspecified (principal); I50.9 Heart failure, unspecified
CPT/HCPCS: 36415; 80053; 83690; 83735; 83880; 85025; 85027